=== PATIENT | male | born 1945 ===

== ENCOUNTER 2020-06-18 13:01 | Inpatient (IN) ==
[2020-06-18] MEDS ORDERED: PANTOPRAZOLE 40 MG VIAL IV STA (14:25)
[2020-06-18] MEDS ORDERED: SODIUM CHLORIDE 0.9% 500 ML IV STA (14:25)
[2020-06-18] MEDS ORDERED: ONDANSETRON 4 MG/2 ML VIAL IV STA (14:25)
[2020-06-18 14:58] LABS: Basophils % 0.1 % (0.0-0.8); Eosinophils % 0.1 % (0.00-10.9); Hematocrit 42.5 VOL% (42.0-52.0); Hemoglobin 14.7 GM/DL (14.0-18.0); Immature Granulocytes % 0.8 %; Immature Granulocytes Absolute 0.13 #; Lymphocytes # 0.8 10*3/uL (1.4-4.0); Lymphocytes % 4.5 % (21.2-54.2); Mean Corpuscular HGB Conc 34.6 GM/DL (32-36); Mean Corpuscular Volume 89.7 FL (87-102); Mean Platelet Volume 11.1 FL (9.6-12.0); Monocytes % 6.7 % (1.7-12.7); Neutrophils % 87.8 % (38.7-73.9); Platelet Count 255 T/CUMM (130-400); Red Blood Count 4.74 MC/CUMM (3.8-5.5); Red Cell Distribution Width 13.9 % (9.3-17.3); White Blood Count 16.7 T/CUMM (4-12)
[2020-06-18 15:25] LABS: Albumin 2.6 G/DL (3.4-5.0); Bilirubin,Total 0.8 MG/DL (0.2-1.0); Calcium 8.5 MG/DL (8.5-10.1); Osmolality,Calculated 276.1 MOS/KG (273-304)
[2020-06-18 15:30] LABS: Atypical Lymphocytes Few; Hypochromasia 1+; Lymphocytes 7 % (20-55); Platelet Estimate Normal; Segmented Neutrophils 92 % (50-85); Total Cells Counted 100
[2020-06-18 15:57] LABS: Bilirubin,Urine Negative (Negative); Blood, Urine Moderate mg/dL (Negative); Glucose,Urine (UA) Negative (Negative); Granular Casts,Urine 7 /LPF (0-1); Hyaline Casts,Urine 32 /LPF (0-3); Ketones,Urine 5 mg/dL (Negative); Mucus,Urine Few /LPF (Occasional); Nitrite,Urine Negative (Negative); Protein,Urine 100 MG/DL; RBC,Urine 1 /HPF (0-4); Urine Appearance Slightly Hazy (Clear); Urine Color Amber (Yellow); Urine Specific Gravity 1.027 (1.001-1.035); WBC,Urine 3 /HPF (0-6)
[2020-06-18 16:29] LABS: ABG Base Excess 0.7 MMOL/L (-2.5-2.5); ABG HCO3 24.8 MMOL/L (20-26); ABG Oxygen Saturation 86.8 % (95-100); ABG PCO2 33.4 MM HG (35-48); ABG PH 7.462 (7.35-7.45); ABG PO2 54.3 MM HG (80-95); ABG TCO2 20.8 MMOL/L (23-27); Allen Test Positive
[2020-06-18] MEDS ORDERED: DEXTROSE 50% 25 GM/50 ML VIAL IV PRN (18:00)
[2020-06-18] MEDS ORDERED: ALBUTEROL/IPRATROPIUM 3 ML NEB RESP TX PRN (18:00)
[2020-06-18] MEDS ORDERED: GLUCAGON 1 MG VIAL IM PRN (18:00)
[2020-06-18] MEDS ORDERED: hydrALAZINE 20 MG/1 ML VIAL IV PRN (18:00)
[2020-06-18] MEDS ORDERED: guaiFENesin/DM ER 600-30 MG TABLET PO PRN (18:00)
[2020-06-18] MEDS ORDERED: MORPHINE 4 MG/1 ML VIAL IV PRN (18:00)
[2020-06-18] MEDS: SODIUM CHLORIDE 0.9% 1,000 ML IV SCH (19:30)
[2020-06-18] MEDS: LEVOFLOXACIN INJ 750 MG in PREMIX 1 EACH IV SCH (19:30)
[2020-06-18 21:00] LABS: CKMB % 3.3 %; Uric Acid 9.1 MG/DL (3.5-7.2)
[2020-06-18] MEDS ORDERED: ENOXAPARIN 40 MG/0.4 ML SYRINGE SUBCUT SCH (21:00)
[2020-06-18] MEDS: metroNIDAZOLE INJ 500 MG in PREMIX 1 EACH IV SCH (22:29)
[2020-06-18] MEDS ORDERED: INFLUENZA VIRUS VACCINE 0.5 ML SYRINGE IM ONE (23:21)
[2020-06-19 04:13] LABS: Basophils % 0.2 % (0.0-0.8); Eosinophils % 0.3 % (0.00-10.9); Hematocrit 36.6 VOL% (42.0-52.0); Hemoglobin 12.5 GM/DL (14.0-18.0); Immature Granulocytes Absolute 0.14 #; Mean Corpuscular HGB Conc 34.2 GM/DL (32-36); Mean Corpuscular Volume 90.1 FL (87-102); Mean Platelet Volume 11.8 FL (9.6-12.0); Neutrophils % 84.5 % (38.7-73.9); Platelet Count 244 T/CUMM (130-400); Red Blood Count 4.06 MC/CUMM (3.8-5.5); White Blood Count 13.7 T/CUMM (4-12)
[2020-06-19 04:54] LABS: Albumin 1.9 G/DL (3.4-5.0); Bilirubin,Total 0.7 MG/DL (0.2-1.0); Calcium 7.6 MG/DL (8.5-10.1); Osmolality,Calculated 278.8 MOS/KG (273-304); Thyroid Stimulating Hormone 1.85 uIU/ml (0.358-3.74); Total Protein 5.5 G/DL (6.4-8.3)
[2020-06-19] MEDS: metroNIDAZOLE INJ 500 MG in PREMIX 1 EACH IV SCH ×3 (05:00→20:24)
[2020-06-19] MEDS: SODIUM CHLORIDE 0.9% 1,000 ML IV SCH ×4 (05:13→20:35)
[2020-06-19 05:36] LABS: Band Neutrophils 1 % (0-10); Lymphocytes 8 % (20-55); Segmented Neutrophils 88 % (50-85); Total Cells Counted 100
[2020-06-19 05:37] LABS: Microcytosis Slight; Platelet Estimate Normal
[2020-06-19 07:59] LABS: HIV Antigen/Antibody Result Nonreactive (Nonreactive)
[2020-06-19] MEDS: ACETAMINOPHEN 325 MG TABLET PO PRN (08:59)
[2020-06-19] MEDS: PANTOPRAZOLE 40 MG TABLET PO SCH (09:00)
[2020-06-19] MEDS ORDERED: ENOXAPARIN 80 MG/0.8 ML SYRINGE SUBCUT SCH (12:00)
[2020-06-19] MEDS: ENOXAPARIN 40 MG/0.4 ML SYRINGE SUBCUT SCH ×2 (13:30→23:53)
[2020-06-19] MEDS: LEVOFLOXACIN INJ 750 MG in PREMIX 1 EACH IV SCH (18:09)
[2020-06-19] MEDS: ONDANSETRON 4 MG/2 ML VIAL IV PRN (20:36)
[2020-06-20] MEDS: ONDANSETRON 4 MG/2 ML VIAL IV PRN (00:41)
[2020-06-20] MEDS: SODIUM CHLORIDE 0.9% 1,000 ML IV SCH ×4 (00:41→20:19)
[2020-06-20 04:05] LABS: Basophils % 0.3 % (0.0-0.8); Eosinophils # 0.1 10*3/uL (0.0-0.87); Eosinophils % 1.1 % (0.00-10.9); Hematocrit 37.3 VOL% (42.0-52.0); Hemoglobin 12.7 GM/DL (14.0-18.0); Immature Granulocytes % 0.9 %; Immature Granulocytes Absolute 0.11 #; Lymphocytes % 7.4 % (21.2-54.2); Mean Corpuscular Volume 91.4 FL (87-102); Mean Platelet Volume 12.1 FL (9.6-12.0); Monocytes % 7.5 % (1.7-12.7); Neutrophils % 82.8 % (38.7-73.9); Platelet Count 252 T/CUMM (130-400); Red Blood Count 4.08 MC/CUMM (3.8-5.5); Red Cell Distribution Width 14.3 % (9.3-17.3); White Blood Count 12.8 T/CUMM (4-12)
[2020-06-20 04:27] LABS: Albumin 1.9 G/DL (3.4-5.0); Bilirubin,Total 0.8 MG/DL (0.2-1.0); Calcium 7.7 MG/DL (8.5-10.1); Osmolality,Calculated 285.1 MOS/KG (273-304); Total Protein 5.3 G/DL (6.4-8.3)
[2020-06-20] MEDS: metroNIDAZOLE INJ 500 MG in PREMIX 1 EACH IV SCH ×3 (04:32→21:51)
[2020-06-20 04:45] LABS: Anisocytosis Slight; Eosinophils 1 % (0-10); Lymphocytes 8 % (20-55); Macrocytosis Slight; Platelet Estimate Normal; Segmented Neutrophils 84 % (50-85); Total Cells Counted 100
[2020-06-20] MEDS: PANTOPRAZOLE 40 MG TABLET PO SCH (08:18)
[2020-06-20] MEDS: ENOXAPARIN 40 MG/0.4 ML SYRINGE SUBCUT SCH ×2 (11:35→23:12)
[2020-06-20] MEDS ORDERED: MAGNESIUM SULF RIDER 4 GM in PREMIX 1 EACH IV PRN (11:36)
[2020-06-20] MEDS ORDERED: MAGNESIUM SULF RIDER 2 GM in PREMIX 1 EACH IV PRN (11:36)
[2020-06-20] MEDS ORDERED: chlordiazePOXIDE 10 MG CAPSULE PO PRN (11:52)
[2020-06-20] MEDS: CIPROFLOXACIN INJ 400 MG in PREMIX 1 EACH IV SCH (14:52)
[2020-06-20] MEDS: busPIRone 5 MG TABLET PO SCH (21:50)
[2020-06-20] MEDS: MELATONIN 3 MG TABLET PO SCH (21:51)
[2020-06-20] MEDS: THIAMINE 100 MG TABLET PO SCH (21:51)
[2020-06-20] MEDS: FOLIC ACID 1 MG TABLET PO SCH (21:51)
[2020-06-20] MEDS: ACETAMINOPHEN 325 MG TABLET PO PRN (21:52)
[2020-06-21] MEDS: SODIUM CHLORIDE 0.9% 1,000 ML IV SCH ×2 (02:08→23:59)
[2020-06-21] MEDS: CIPROFLOXACIN INJ 400 MG in PREMIX 1 EACH IV SCH ×2 (03:32→15:55)
[2020-06-21 03:41] LABS: Basophils % 0.3 % (0.0-0.8); Eosinophils # 0.3 10*3/uL (0.0-0.87); Eosinophils % 2.9 % (0.00-10.9); Hemoglobin 12.2 GM/DL (14.0-18.0); Immature Granulocytes % 1.7 %; Lymphocytes # 1.5 10*3/uL (1.4-4.0); Lymphocytes % 13.4 % (21.2-54.2); Mean Corpuscular HGB Conc 33.9 GM/DL (32-36); Mean Corpuscular Volume 91.6 FL (87-102); Mean Platelet Volume 11.6 FL (9.6-12.0); Monocytes % 7.3 % (1.7-12.7); Neutrophils % 74.4 % (38.7-73.9); Platelet Count 296 T/CUMM (130-400); Red Blood Count 3.93 MC/CUMM (3.8-5.5); Red Cell Distribution Width 14.6 % (9.3-17.3); White Blood Count 11.5 T/CUMM (4-12)
[2020-06-21 04:01] LABS: % Iron Saturation 21.3 % (18-50)
[2020-06-21 04:09] LABS: Ferritin 860.3 ng/ml (26-388)
[2020-06-21 04:10] LABS: Albumin 1.8 G/DL (3.4-5.0); Bilirubin,Total 0.8 MG/DL (0.2-1.0); Calcium 7.5 MG/DL (8.5-10.1); Osmolality,Calculated 282.1 MOS/KG (273-304)
[2020-06-21 04:15] LABS: Folate 14.6 NG/ML (5.4-24.0)
[2020-06-21] MEDS: metroNIDAZOLE INJ 500 MG in PREMIX 1 EACH IV SCH ×3 (05:11→21:46)
[2020-06-21] MEDS ORDERED: IRON SUCROSE 300 MG in SODIUM CHLORIDE 0.9% 100 ML IV ONE (06:46)
[2020-06-21] MEDS: busPIRone 5 MG TABLET PO SCH ×3 (08:32→21:46)
[2020-06-21] MEDS: THIAMINE 100 MG TABLET PO SCH ×2 (08:32→21:47)
[2020-06-21] MEDS: PANTOPRAZOLE 40 MG TABLET PO SCH (08:32)
[2020-06-21] MEDS: FERROUS SULFATE 325 MG TABLET PO SCH ×2 (08:32→21:46)
[2020-06-21] MEDS: ENOXAPARIN 40 MG/0.4 ML SYRINGE SUBCUT SCH ×2 (12:49→23:58)
[2020-06-21] MEDS: FOLIC ACID 1 MG TABLET PO SCH (21:46)
[2020-06-21] MEDS: ACETAMINOPHEN 325 MG TABLET PO PRN (21:47)
[2020-06-21] MEDS: MELATONIN 3 MG TABLET PO SCH (21:47)
[2020-06-22] MEDS: CIPROFLOXACIN INJ 400 MG in PREMIX 1 EACH IV SCH (03:26)
[2020-06-22 04:33] LABS: Ferritin 910.9 ng/ml (26-388)
[2020-06-22] MEDS: metroNIDAZOLE INJ 500 MG in PREMIX 1 EACH IV SCH (05:19)
[2020-06-22 08:41] VITALS: BP 127/77
[2020-06-22] MEDS ORDERED: metroNIDAZOLE 500 MG TABLET PO SCH (09:00)
[2020-06-22] MEDS ORDERED: CIPROFLOXACIN 500 MG TABLET PO SCH (09:00)
[2020-06-22] MEDS: FERROUS SULFATE 325 MG TABLET PO SCH (09:18)
[2020-06-22] MEDS: busPIRone 5 MG TABLET PO SCH (09:18)
[2020-06-22] MEDS: PANTOPRAZOLE 40 MG TABLET PO SCH (09:19)
[2020-06-22] MEDS: THIAMINE 100 MG TABLET PO SCH (09:19)
[2020-06-22] MEDS ORDERED: VANCOMYCIN 50 MG/ML 60 ML/BOTTLE PO SCH (12:00)
== END 2020-06-22 10:20 | disposition home health service (06) | DRG 177 ==
LOC: N.ED 13:01 → N.EDINP 17:36 → N.2E 21:06
PROVIDERS: ADMIT Hospitalist; ATTEND Hospitalist